=== PATIENT | male | born 1955 | race African-American/Black ===

== ENCOUNTER 2017-02-15 13:18 | Emergency (ER) | payer BC ==
[~2017-02-15] VITALS: Ht 185.4 cm; Wt 73.0 kg
[2017-02-15 16:50] VITALS: BP 149/86
== END 2017-02-15 19:29 | disposition home or self-care (01) ==
LOC: ER 18:04
DX: M54.6 Pain in thoracic spine (principal); M62.830 Muscle spasm of back; I51.9 Heart disease, unspecified; Z95.1 Presence of aortocoronary bypass graft
CPT/HCPCS: 71020; 99284